=== PATIENT | female | born 1975 | race Caucasian/White ===

== ENCOUNTER 2016-05-09 17:40 | Emergency (ER) | payer OTHER ==
[~2016-05-09] VITALS: Ht 160 cm; Wt 54.0 kg
[~2016-05-09 17:40] MED LIST: AMOXICILLIN500 MG PO; BACTRIM,SEPT1 TABLET PO; DEPAKOTE500 MG PO; FIORICET WI1 CAPSULE PO; FIORINAL1 TABLET PO; FLEXERIL10 MG PO; HYDROCODON-ACE1 EAC7 PO; HYDROCODON-ACE1 EACH; LAMICTAL100 MG PO; LAMICTAL25 MG PO; MOBIC7.5 MG PO; NAPROSYN500 MG PO; NO HOME MEDS PO; PEN-VEE K,VEET500 MG PO; PREDNISONE20 MG PO; TORADOL10 MG PO; ULTRAM50 MG PO; VALIUM5 MG PO; XANAX0.25 MG PO; ZOFRAN ODT4 MG PO; ZOLOFT100 MG PO; ZOLPIDEM TARTRAT5 MG PO
[2016-05-09 18:01] VITALS: BP 155/89
[2016-05-10] MEDS ORDERED: PERCOCET 5/31 TABLET PO (01:44)
== END 2016-05-09 21:15 | disposition left against medical advice (07) ==
LOC: EME 17:40
DX: M54.2 Cervicalgia (principal); Z53.21 Procedure and treatment not carried out due to patient leaving prior to being seen by health care provider

== ENCOUNTER 2016-05-09 23:46 | Emergency (ER) | payer OTHER ==
[~2016-05-09] VITALS: Ht 160 cm; Wt 54.1 kg
[2016-05-10] MEDS ORDERED: PERCOCET 5/31 TABLET PO (01:44)
[2016-05-10 02:08] VITALS: BP 121/77
== END 2016-05-10 02:10 | disposition home or self-care (01) ==
LOC: EME 23:46
DX: S16.1XXA Strain of muscle, fascia and tendon at neck level, initial encounter (principal); V49.40XA Driver injured in collision with unspecified motor vehicles in traffic accident, initial encounter; G89.29 Other chronic pain; M50.322 Other cervical disc degeneration at C5-C6 level
CPT/HCPCS: 72125; 72128; 99281; 99284

== ENCOUNTER 2016-06-01 23:39 | Emergency (ER) | payer OTHER ==
[~2016-06-01] VITALS: Ht 160 cm; Wt 54.4 kg
[~2016-06-01 23:39] MED LIST changes: +PERCOCET 5/31 TABLET PO
[2016-06-01 23:42] VITALS: BP 118/81
[2016-06-01] MEDS ORDERED: TRAMADOL HCL E100 M1 PO (23:49)
== END 2016-06-02 01:35 | disposition home or self-care (01) ==
LOC: EME 23:39
PROC: 0XQVXZZ Repair Right Little Finger, External Approach (ICD-10-PCS; principal; 2016-06-01)
DX: S61.216A Laceration without foreign body of right little finger without damage to nail, initial encounter (principal); W25.XXXA Contact with sharp glass, initial encounter; F17.200 Nicotine dependence, unspecified, uncomplicated
CPT/HCPCS: 80053; 81003; 84702; 85027; 87502; 99281; 99283

== ENCOUNTER 2017-08-28 23:26 | Emergency (ER) | payer SELFPAY ==
[~2017-08-28] VITALS: Ht 160 cm; Wt 53.5 kg
[~2017-08-28 23:26] MED LIST changes: +TRAMADOL HCL E100 M1 PO
[2017-08-28] MEDS ORDERED: ULTRAM50 MG PO (23:46)
[2017-08-28] MEDS ORDERED: FLEXERIL10 MG PO (23:46)
[2017-08-29 00:18] VITALS: BP 127/80
== END 2017-08-29 00:19 | disposition home or self-care (01) ==
LOC: EME 23:26
DX: M54.9 Dorsalgia, unspecified (principal); G89.29 Other chronic pain; Z88.8 Allergy status to other drugs, medicaments and biological substances
CPT/HCPCS: 99281; 99283